=== PATIENT | male | born 1955 | race Two or more races ===

== ENCOUNTER 2019-02-20 15:30 | Outpatient (CLI) | payer OTHER | END 2019-02-20 15:36 | disposition home or self-care (01) | LOC: LAB 15:30 | DX: R97.20 Elevated prostate specific antigen [PSA] (principal) ==

== ENCOUNTER → 2019-02-28 | Outpatient (CLI) | payer OTHER | END | disposition home or self-care (01) | LOC: SONOGRAMA 07:32 | DX: R97.20 Elevated prostate specific antigen [PSA] (principal) ==

== ENCOUNTER 2021-03-21 05:14 | Emergency (ER) | payer OTHER ==
[~2021-03-21] VITALS: Ht 167.6 cm; Wt 95.3 kg
[2021-03-21] MEDS ORDERED: TRILIPIX135 MG (05:28)
[2021-03-21] MEDS ORDERED: BISOPROLOL FUMA10 MG (05:28)
[2021-03-21] MEDS ORDERED: CARDURA1 MG (05:28)
== END 2021-03-21 12:30 | disposition home or self-care (01) ==
LOC: ER 05:14
DX: R33.8 Other retention of urine (principal)

== ENCOUNTER 2021-04-11 07:45 | Inpatient (IN) | payer OTHER ==
[~2021-04-11] VITALS: Ht 167.6 cm; Wt 88.5 kg
[~2021-04-11 07:45] MED LIST: BISOPROLOL FUMA10 MG; CARDURA1 MG; TRILIPIX135 MG
[2021-04-11] MEDS ORDERED: FINASTERIDE5 MG PO (08:46)
[2021-04-11] MEDS ORDERED: ZOVIRAX400 MG PO (08:46)
[2021-04-11] MEDS ORDERED: SEPTRA PO (08:47)
[2021-04-11] MEDS ORDERED: NEURONTIN600 M1 PO (08:48)
[2021-04-13] MEDS ORDERED: BACTRIM DS TAB1 EACH (08:08)
== END 2021-04-15 11:46 | disposition home or self-care (01) | DRG 718 ==
LOC: O/R 04-13 05:35 → LDR 04-13 07:45 → SURH 04-13 07:45 → SURG 04-13 13:09
PROVIDERS: ADMIT Urology; ATTEND Urology
PROC: 0VB00ZZ Excision of Prostate, Open Approach (ICD-10-PCS; principal; 2021-04-13 10:00)
DX: N40.0 Benign prostatic hyperplasia without lower urinary tract symptoms (principal); R33.8 Other retention of urine